=== PATIENT | male | born 1980 | race Caucasian/White ===

== ENCOUNTER 2018-07-16 19:58 | Emergency (ER) | payer OTHER ==
[~2018-07-16] VITALS: Ht 162.6 cm; Wt 110.9 kg
[2018-07-16 22:59] VITALS: BP 142/92
[2018-07-16] MEDS ORDERED: ADACEL/BOOSTRIX VACCINE (DIPHTH/PERTUSS/ACELL/TETANUS)0.5ML SYR (90715) IM ONE (23:30)
[2018-07-16] MEDS ORDERED: LIDOCAINE 1% MDV 20ML VIAL IM ONE (23:30)
[2018-07-17] MEDS ORDERED: NEOSPORIN TOP OINT 15GM TOP ONE
[2018-07-17] MEDS ORDERED: AUGM875T28 PO
[2018-07-17] MEDS ORDERED: AUGMENTIN 875 MG TAB PO ONE
[2018-07-17] MEDS ORDERED: NEOSPORIN OINT 0.9 GM PKT (FLOOR STOCK) As Ordered ONE ×2 (00:02→00:09)
[2018-07-17] MEDS ORDERED: NEOSPORIN OINT 0.9 GM PKT (FLOOR STOCK) TOP ONE (00:30)
--- NOTE | 2018-07-17 01:20 | REP ---
Clinical: Trauma. Foreign body. Technique: AP, lateral, bilateral oblique views left fifth digit . Findings: The osseous structures and joint spaces are intact and normal. There is no evidence for acute fracture or dislocation. Lateral view best demonstrates soft tissue swelling along the palmar aspect overlying the distal phalanx. No subcutaneous emphysema or radiodense foreign body. Impression: Focal area of soft tissue swelling. No foreign body identified. No acute fracture or dislocation. Electronically Signed by Magno Salazar MD 07/17/2018 01:11 A
== END 2018-07-17 00:20 | disposition home or self-care (01) ==
LOC: M ED 19:58
DX: S61.217A Laceration without foreign body of left little finger without damage to nail, initial encounter (principal); W26.8XXA Contact with other sharp object(s), not elsewhere classified, initial encounter; Y92.89 Other specified places as the place of occurrence of the external cause; Y99.0 Civilian activity done for income or pay; Z88.6 Allergy status to analgesic agent